=== PATIENT | female | born 1995 | race Caucasian/White ===

== ENCOUNTER 2016-12-11 11:16 | Emergency (ER) | payer SELFPAY ==
[~2016-12-11] VITALS: Ht 165.1 cm; Wt 5.9 kg
[~2016-12-11 11:16] MED LIST: IBUP800T28 PO
[2016-12-11 11:17] VITALS: BP 125/78; PULSE 65; RESP 15; O2SAT 100
--- NOTE | 2016-12-11 11:48 | ED.REPORT ---
HPI-Abd Pain F Under 38 Date of Service Dec 11, 2016 ED Provider: Henny Sy History of Present Illness: rash on legs that has spread to arms for 2 months, tried exczema cream no help, bleeding for 5 to 6 months daily, will stop for a day or 2 but then returns angel is primary care. went to [facility] the [facility] visit but justin ortiz is primary care, last visit >1 year ago, denies dizzines reports 2 months ago had with depo injection at that time, reports pap was done also and normal used otc exczema cream, no help Nursing Notes Chief Complaint: Female Abdominal Pain Nursing Notes Reviewed: Yes Allergies: Coded Allergies: No Known Allergies (Verified Allergy, Unknown, 12/11/16) Scheduled PRN Ibuprofen (Ibuprofen) 800 Mg Tablet 800 MG PO TID PRN PRN For Pain General Time Seen by MD: 11:46 Chief Complaint Vaginal bleeding, Other (rash) Hx Obtained From: Patient Sudden in Onset?: No Past Medical History Past Medical History Notes: PCP: no one Past Medical History Has had Pneumonia A1 Past Surgical History D&C Family History Pt's dad has history of hypertension Smoking History Never Smoker Social History Alcohol Use: Denies alcohol use Drug Use: THC Other Social History: Lives with parents Occupation work at [employer] in [place], 12/11/2016 Ambulatory Status Independent Review of Systems Basic Review of Systems Eyes: Vision NL, No discharge ENT: Hearing NL, No pain, No nasal congestion, No pharyngeal pain Hematologic: No bleeding, No bruising Endocrine: No cold intolerance, No heat intolerance, No weight gain, No weight loss Skin: No bruising, No rash, No itch Allergy / Immune: No allergy Neurologic: NL mental status, No weakness, No numbness Psychiatric: Normal thought content Physical Exam Initial Vital Signs Vital Signs (First) Date Time Temp Pulse Resp B/P Pulse Ox O2 Delivery O2 Flow Rate FiO2 12/11/16 11:17 36.6 65 15 125/78 100 Room Air Initial VS: Reviewed, Vital signs normal Head / Eyes: Atraumatic, Normocephalic, PERRL ENT: Mucous membranes moist, Conjunctiva normal, No scleral icterus Neck: Supple, Non-tender, Full range of motion Lymphatic: No lymphadenopathy Extremities: Vascular intact, Neuro intact, No swelling, No tenderness Skin: Warm, Dry, No cyanosis Neurologic: Alert, Oriented, Nonfocal Psychiatric: Mood/affect normal, Behavior normal, Normal thought content General/Constitutional: Awake, Alert, No acute distress, Well appearing Respiratory / Chest: Atraumatic, Breath sounds NL, Breath sounds = bilat, No respiratory distress Cardiovascular: Heart rate NL, Regular rhythm, Heart sounds NL, No gallop Abdomen: Atraumatic, Soft, Non-tender Back: Atraumatic, Inspection NL, Full range of motion Color / Condition: Positive: Rash present Rash / Lesion Notes: rash on lower legs is small circular with one spot on right forearm Female Genitourinary: Patient refused exam Interpretation & Diagnostics Lab Results Interpretation Result Diagram: 12/11/16 1210 12/11/16 1210 Test 12/11/16 12:10 12/11/16 12:30 White Blood Count 7.3th/mm3 (3.8-10.1) Red Blood Count 4.42mil/mm3 (3.90-5.20) Hemoglobin 12.8g/dL (12.0-15.6) Hematocrit 39.2% (35.0-46.0) Mean Corpuscular Volume 88.7fL (81-100) Mean Corpuscular Hemoglobin 29.0pg (27.0-35.0) Mean Corpuscular Hemoglobin Concent 32.7% (32.0-37.0) Red Cell Distribution Width 13.2% (12.3-15.4) Platelet Count 225bil/L (150-400) Neutrophils (%) (Auto) 64.0% (40-74) Lymphocytes (%) (Auto) 26.2% (14-46) Monocytes (%) (Auto) 7.1% (4-12) Eosinophils (%) (Auto) 1.9% (0-5) Basophils (%) (Auto) 0.5% (0-3) Sodium Level 140mEq/L (134-144) Potassium Level 4.0mEq/L (3.5-5.2) Chloride Level 106mEq/L (97-108) Carbon Dioxide Level 22mmol/L (18-29) Blood Urea Nitrogen 13mg/dL (6-20) Creatinine 0.66mg/dL (0.57-1.00) Estimat Glomerular Filtration Rate 159mL/min (>59) Glucose Level 100mg/dL (60-99) Calcium Level 8.9mg/dL (8.5-10.1) Total Bilirubin 0.5mg/dL (0.0-1.2) Aspartate Amino Transf (AST/SGOT) 12U/L (0-50) Alanine Aminotransferase (ALT/SGPT) 11U/L (0-32) Alkaline Phosphatase 65U/L (25-150) Total Protein 7.3g/dL (6.4-8.4) Albumin 4.3g/dL (3.4-5.0) Hold Vergara Top Tube Received (Received) Urine Color Straw (YELLOW) Urine Appearance Hazy (CLEAR,HAZY) Urine pH 6.0 (5.0-8.0) Urine Specific Axis 1.015 (1.003-1.035) Urine Protein Negativemg/dL (NEG,TRACE) Urine Glucose (UA) Negativemg/dL (NEGATIVE) Urine Ketones Negativemg/dL (NEGATIVE) Urine Occult Blood Negative (NEGATIVE) Urine Nitrite Negative (NEGATIVE) Urine Bilirubin Negative (NEGATIVE) Urine Urobilinogen Normalmg/dL (NORMAL) Urine Leukocyte Esterase Trace (NEGATIVE) Urine RBC 0-2/hpf (0-2) Urine WBC 0-5/hpf (0-5) Urine Epithelial Cells Occasional/hpf (NONE-MOD) Urine Crystals None seen (NONE SEEN) Urine Bacteria Moderate/hpf (NONE-FEW) Urine Hyaline Casts None/lpf (NONE) Urine Granular Casts None seen (NONE SEEN) Urine Waxy Casts None seen (NONE SEEN) Urine Red Blood Cell Casts None seen (NONE SEEN) Urine White Blood Cell Casts None seen (NONE SEEN) Urine Mucus None seen (None Seen) Urine Trichomonas None seen (NONE SEEN) Urine Yeast None (NONE SEEN) Urinalysis Comment None Urine Culture Reflexed Indicated US Focused non-OB Pelvis TECHNIQUE: Real-time scanning was performed of the pelvic organs, with image documentation. Additional endovaginal scanning was necessary due to incomplete visualization of the adnexal and endometrial structures by transabdominal scanning. COMPARISON: [facility], US, US PELVIC+TRANSVAG, 05/27/2016, 17:08. FINDINGS: (orthogonal measurements) Uterus size: 8.49 cm, 3.80 cm, 5.52 cm Endometrium thickness: 2.30 mm Right ovary size: 1.88 cm, 4.43 cm, 2.57 cm Left ovary size: 2.58 cm, 4.11 cm, 3.14 cm Transabdominal scanning: Limited scanning through the kidneys shows no hydronephrosis. No pathologic free abdominal or pelvic fluid. Endovaginal scanning: Uterus: Uterus is normal in size and appearance. Endometrium is within normal physiologic limits. Ovaries: Within normal physiologic limits, with bilateral simple follicular cysts, most dominant involving the left ovary measuring roughly 2.1 cm.. IMPRESSION: 1. Normal appearance of the endometrial complex measuring 2 mm. 2. Bilateral simple ovarian cysts, largest on the left measuring roughly 21 mm. Re-Eval/Medical Decision Differential Diagnosis: Positive: Dysmenorrhea, Ectopic , Endometriosis, Pelvic inflam disease Discharge & Departure Primary Impression: Eczema Eczema type: unspecified Qualified Code: L30.9 - Dermatitis, unspecified Additional Impression: Abnormal menses Disposition: Home Additional Instructions: The labs are normal, your posturals are normal. The ultrasound is normal. The urine does not show any infection. With having a depo just 2 months ago, this is not abnormal. You can do a trial of control pills to see if this does not stop the bleeding. [facility] The rash on your legs appear to be exczema. Do not use hot water on them. Use luke warm water and try to shower every other day. Start using triamcinoline ointment to the rash 2 times a day for 5 days. After 5 days start with a good moisturizer, cetaphil is a good one. Apply 2 times a day. [facility] The triamcinoline should help heal the skin. Referrals: Karla Champagne MD (PCP) EDSupervising Provider for APC: Jose G Mcginnis MD copies to: Karla Champagne MD, Sue ARNP Dec 11, 2016 11:48
[2016-12-11 11:59] VITALS: BP 123/80; PULSE 74
[2016-12-11 12:00] VITALS: BP 123/82; PULSE 79; O2SAT 100
[2016-12-11 12:15] VITALS: BP 113/63; PULSE 69; RESP 16; O2SAT 100
[2016-12-11 12:20] VITALS: BP 128/73; PULSE 82; RESP 16; O2SAT 100
[2016-12-11 12:21] LABS: BASOPHILS % (AUTO) 0.5 % (0-3); EOSINOPHILS % (AUTO) 1.9 % (0-5); MONOCYTES % (AUTO) 7.1 % (4-12); Mean Corpuscular Volume 88.7 fL (81-100); Platelet Count 225 bil/L (150-400)
[2016-12-11 13:06] LABS: APPEARANCE,URINE HAZY (CLEAR,HAZY); COLOR,URINE STRAW (YELLOW); OCCULT BLOOD,URINE NEGATIVE (NEGATIVE); UROBILINOGEN,URINE NORMAL (NORMAL)
--- NOTE | 2016-12-11 14:03 | DRSVH ---
PROCEDURE: US PELVIC SONOGRAM + TRANSVAGINAL SONOGRAM INDICATIONS: ongoing bleeding TECHNIQUE: Real-time scanning was performed of the pelvic organs, with image documentation. Additional endovagi nal scanning was necessary due to incomplete visualization of the adnexal and endometrial structures by transabdominal scanning. COMPARISON: [facility], US, US PELVIC+TRANSVAG, 05/27/2016, 17:08. FINDINGS: (orthogonal measurements) Uterus size: 8.49 cm, 3.80 cm, 5.52 cm Endometrium thickness: 2.30 mm Right ovary size: 1.88 cm, 4.43 cm, 2.57 cm Left ovary size: 2.58 cm, 4.11 cm, 3.14 cm Transabdominal scanning: Limited scanning through the kidneys shows no hydronephrosis. No pathologi c free abdominal or pelvic fluid. Endovaginal scanning: Uterus: Uterus is normal in size and appearance. Endometrium is within normal physiologic limits. Ovaries: Within normal physiologic limits, with bilateral simple follicular cysts, most dominant inv olving the left ovary measuring roughly 2.1 cm.. IMPRESSION: 1. Normal appearance of the endometrial complex measuring 2 mm. 2. Bilateral simple ovarian cysts, largest on the left measuring roughly 21 mm. Dictated by: Pascual Junior [facility] Interpreted: Irena Sapp MD on 12/11/2016 at 14:00 Transcribed by: EDILIA on 12/11/2016 at 14:03 Approved by: Irena Sapp M.D. on 12/11/2016 at 17:39
[2016-12-11 14:52] VITALS: BP 128/73; PULSE 82; RESP 16; O2SAT 100
== END 2016-12-11 14:53 | disposition home or self-care (01) ==
LOC: SED 11:16
DX: L30.9 Dermatitis, unspecified (principal); N92.6 Irregular menstruation, unspecified